=== PATIENT | male | born 1960 | race African-American/Black ===

== ENCOUNTER 2017-01-06 13:18 | Emergency (ER) | payer MEDICAID ==
[~2017-01-06] VITALS: Ht 167.6 cm; Wt 91.0 kg
[2017-01-06] MEDS ORDERED: IOHEXOL-300 100 ML BOTTLE ONE (13:52)
[2017-01-06] MEDS ORDERED: SODIUM CHLORIDE 0.9% 10ML VIAL ONE (13:52)
[2017-01-06] MEDS ORDERED: TETANUS, DIPHTHERIA, PERTUSSIS VAC/PF 0.5ML (>7YR OLD) IM ONE (14:15)
[2017-01-06] MEDS ORDERED: SODIUM CHLORIDE 0.9% 1,000 ML IV ONE (15:19)
[2017-01-06] MEDS ORDERED: INSULIN REGULAR (HUMULIN R) 300UNITS/3ML SUBCUT ONE (15:30)
[2017-01-06 15:31] LABS: BASOPHILS % 0.8 % (0.0-2.0); HEMATOCRIT. 35.3 % (42.0-52.0); HEMOGLOBIN. 12.3 g/dL (14.0-18.0); LYMPHOCYTES % 33.7 % (20.0-50.0); MEAN CORPUSCULAR HEMOGLOBIN 30.5 pg (28.0-32.0); MEAN CORPUSCULAR HGB CONC 34.9 g/dL (31.0-37.0); MEAN CORPUSCULAR VOLUME 87.3 fL (80.0-94.0); MEAN PLATELET VOLUME 8.5 fl (7.4-10.4); MONOCYTES % 13.8 % (2.0-8.0); NEUTROPHILS % 49.7 % (40.0-76.0); PLATELET 182 x1000/uL (130-400); RED BLOOD CELL COUNT 4.04 mill/uL (4.7-6.1); RED CELL DISTRIBUTION WIDTH 12.7 % (11.6-14.6); WHITE BLOOD COUNT 3.1 x1000/uL (4.5-11.0)
[2017-01-06 15:32] LABS: ALANINE AMINOTRANSFERASE 31 IU/L (13-61); ALBUMIN 3.3 g/dL (3.4-5.0); ANION GAP 11; CALCIUM 8.2 mg/dL (8.5-10.1); CARBON DIOXIDE 26 mEq/L (21-32); CHLORIDE 104 mEq/L (98-107); ETHANOL BLOOD < 10 mg/dL; INDEX HEMOLYSI 1 (1-3); INDEX ICTERIC 1 (1-4); INDEX LIPEMIC 1 (1-3); LIPASE 139 IU/L (73-393); PROTHROMBIN TIME 10.5 sec; UREA NITROGEN BLOOD 13 mg/dL (7-21); eGFR > 60 mL/min (>60)
[2017-01-06 16:21] LABS: CLARITY URINE CLEAR (CLEAR); COLOR URINE YELLOW (YELLOW); GLUCOSE URINE 3+ (NEGATIVE); KETONES URINE NEGATIVE (NEGATIVE); LEUKOCYTE ESTERASE URINE NEGATIVE (NEGATIVE); NITRITE URINE NEGATIVE (NEGATIVE); OCCULT BLOOD URINE NEGATIVE (NEGATIVE); PROTEIN URINE NEGATIVE (NEGATIVE); SPECIFIC GRAVITY URINE 1.035 (1.005-1.030); UROBILINOGEN URINE 0.2 E.U./dL (0.2-1.0)
[2017-01-06 16:28] LABS: BACTERIA URINE NONE SEEN; CALCIUM PHOSPHATE CRYSTALS UR NONE SEEN /lpf; RBC URINE 0-2 /hpf (0-2); SQUAMOUS EPITHELIAL CELL URINE NONE SEEN /lpf (RARE/1+); WAXY CASTS URINE NONE SEEN /lpf; WBC URINE NONE SEEN /hpf (0-2); YEAST URINE NONE SEEN
[2017-01-06 16:46] LABS: *AMPHETAMINES SCREEN URINE PRESUMTIVE POSITIVE (NEGATIVE); *BARBITURATES SCREEN URINE NEGATIVE (NEGATIVE); *BENZODIAZEPINES SCREEN URINE NEGATIVE (NEGATIVE); *COCAINE SCREEN URINE NEGATIVE (NEGATIVE); CANNABINOID URINE SCREEN NEGATIVE (NEGATIVE); ECSTASY MDMA SCREEN URINE NEGATIVE (NEGATIVE); METHADONE URINE SCREEN NEGATIVE (NEGATIVE); OPIATES URINE SCREEN NEGATIVE (NEGATIVE); PHENCYCLIDINE URINE SCREEN NEGATIVE (NEGATIVE)
[2017-01-06 18:40] VITALS: BP 129/83
== END 2017-01-06 19:00 | disposition home or self-care (01) ==
LOC: ER 14:24
DX: S31.110A Laceration without foreign body of abdominal wall, right upper quadrant without penetration into peritoneal cavity, initial encounter (principal); E11.9 Type 2 diabetes mellitus without complications; F17.210 Nicotine dependence, cigarettes, uncomplicated; X58.XXXA Exposure to other specified factors, initial encounter; Y93.89 Activity, other specified; Y92.9 Unspecified place or not applicable; Y99.8 Other external cause status
CPT/HCPCS: 36415; 71010; 74177; 76705; 80053; 80305; 81001; 82962; 83690; 85025; 85610; 90471; 90715; 96372; 99285; A4216; A4217; G0482; J1815; Q9967; Z7610; J7030

== ENCOUNTER 2017-09-26 11:45 | Emergency (ER) | payer MEDICAID ==
[~2017-09-26] VITALS: Ht 175.3 cm; Wt 75.0 kg
[2017-09-26 11:48] VITALS: BP 137/58
== END 2017-09-26 19:04 | disposition left against medical advice (07) ==
LOC: ER 11:52
DX: Z53.21 Procedure and treatment not carried out due to patient leaving prior to being seen by health care provider (principal); E11.9 Type 2 diabetes mellitus without complications

== ENCOUNTER 2018-12-25 10:45 | Emergency (ER) | payer MEDICAID ==
[~2018-12-25] VITALS: Ht 167.6 cm; Wt 91.0 kg
[2018-12-25] MEDS ORDERED: IBUPROFEN 800MG TABLET PO ONE (12:15)
[2018-12-25] MEDS ORDERED: DOCUSATE SODIUM SUGAR FREE 100MG/10ML UDC PO ONE (12:15)
[2018-12-25 12:16] VITALS: BP 126/80
[2018-12-25] MEDS ORDERED: DOCUSATE SODIUM 100MG CAPSULE PO SCH (12:30)
== END 2018-12-25 13:24 | disposition home or self-care (01) ==
LOC: ER 11:51
DX: H92.03 Otalgia, bilateral (principal); R51 Headache; F17.200 Nicotine dependence, unspecified, uncomplicated; E11.9 Type 2 diabetes mellitus without complications
CPT/HCPCS: 99283; A4217; Z7610

== ENCOUNTER 2019-09-21 13:09 | Emergency (ER) | payer SELFPAY ==
[~2019-09-21] VITALS: Ht 167.6 cm; Wt 94.0 kg
[2019-09-21 13:20] VITALS: BP 133/83
[2019-09-21] MEDS ORDERED: CARBAMIDE PEROXIDE 6.5% OTIC SOLN 15ML EACH EAR ONE (15:15)
== END 2019-09-21 15:44 | disposition left against medical advice (07) ==
LOC: ER 13:09
DX: Z53.21 Procedure and treatment not carried out due to patient leaving prior to being seen by health care provider (principal); E11.9 Type 2 diabetes mellitus without complications

== ENCOUNTER 2020-03-05 20:42 | Inpatient (IN) | payer MEDICAID ==
[~2020-03-05] VITALS: Ht 167.6 cm; Wt 71.7 kg
[2020-03-05] MEDS ORDERED: ACETAMINOPHEN 325MG TABLET PO ONE (21:30)
[2020-03-05 21:54] LABS: BASOPHILS % 0.2 % (0.0-2.0); EOSINOPHILS % 0.4 % (0.0-5.0); HEMATOCRIT. 36.4 % (42.0-52.0); HEMOGLOBIN. 12.4 g/dL (14.0-18.0); LYMPHOCYTES % 10.7 % (20.0-50.0); NEUTROPHILS % 78.7 % (40.0-76.0); PLATELET 309 x1000/uL (130-400); RED BLOOD CELL COUNT 4.13 mill/uL (4.7-6.1); RED CELL DISTRIBUTION WIDTH 12.6 % (11.6-14.6)
[2020-03-05 21:57] LABS: CHLORIDE 98 mEq/L (98-107)
[2020-03-05] MEDS ORDERED: AMPICILLIN SOD/SULBACTAM NA 3 G in SODIUM CHLORIDE 0.9% 100 ML IV SCH (22:30)
[2020-03-06] MEDS ORDERED: INSULIN REGULAR (HUMULIN R) 300UNITS/3ML SUBCUT ONE (00:15)
[2020-03-06] MEDS ORDERED: GUAIFENESIN 200MG/10ML SUGAR FREE UDC PO PRN (02:15)
[2020-03-06] MEDS ORDERED: IPRATROPIUM/ALBUTEROL 0.5-3(2.5)MG/3ML NEB NEB PRN (02:15)
[2020-03-06] MEDS ORDERED: DOCUSATE SODIUM 100MG CAPSULE PO PRN (02:15)
[2020-03-06] MEDS ORDERED: MORPHINE SULFATE 2 MG/ML CPJ (NOT FOR IM USE) IV PRN (02:15)
[2020-03-06] MEDS ORDERED: MAGNESIUM/ALUMINUM HYDROXIDE/SIMETHICONE 30ML UDC PO PRN (02:15)
[2020-03-06] MEDS ORDERED: ACETAMINOPHEN 325MG TABLET PO PRN (02:15)
[2020-03-06] MEDS ORDERED: HYDROCODONE/ACETAMINOPHEN 5/325MG TABLET PO PRN (02:15)
[2020-03-06] MEDS ORDERED: LORAZEPAM 2MG/ML CPJ IV PRN (02:15)
[2020-03-06] MEDS ORDERED: NA PHOS,M-B/NA PHOS,DI-BA ENEMA 118ML PR PRN (02:15)
[2020-03-06] MEDS ORDERED: DIPHENHYDRAMINE 50MG/ML VIAL IV PRN (02:15)
[2020-03-06] MEDS ORDERED: PIPERACILLIN/TAZ 3.375G PREMIX 50 ML IV SCH (02:15)
[2020-03-06] MEDS ORDERED: ONDANSETRON HCL 4MG/2ML INJ IV PRN (02:15)
[2020-03-06] MEDS ORDERED: ENOXAPARIN 40MG/0.4ML SYR SUBCUT NR (02:23)
[2020-03-06 02:45] LABS: CHLORIDE 100 mEq/L (98-107)
[2020-03-06] MEDS: VANCOMYCIN 1 G PREMIX 200 ML IV SCH ×2 (03:58→16:54)
[2020-03-06] MEDS: CLONIDINE 0.1MG TABLET PO PRN ×2 (04:15→21:36)
[2020-03-06] MEDS: PIPERACILLIN/TAZOBACTAM 3.375 G in DEXT 5% WATER 100 ML IV SCH ×2 (06:07→15:34)
[2020-03-06] MEDS ORDERED: DEXTROSE 50% WATER 50ML SYRINGE IV PRN (08:00)
[2020-03-06] MEDS: BLOOD SUGAR DIAGNOSTIC STRIP TEST SCH ×4 (08:38→20:59)
[2020-03-06] MEDS: INSULIN LISPRO 100 UNITS/ML SUBCUT SCH ×4 (08:46→20:59)
[2020-03-06] MEDS: ASPIRIN 81MG EC TABLET PO SCH (09:54)
[2020-03-07] VITALS: BP 134/80
[2020-03-07 00:24] VITALS: BP 134/80
[2020-03-07] MEDS: PIPERACILLIN/TAZOBACTAM 3.375 G in DEXT 5% WATER 100 ML IV SCH ×2 (01:28→09:35)
[2020-03-07 04:00] VITALS: BP 145/78
[2020-03-07] MEDS ORDERED: VANCOMYCIN 1 G PREMIX 200 ML IV SCH ×2 (04:00→11:00)
[2020-03-07 06:11] LABS: BASOPHILS % 0.3 % (0.0-2.0); EOSINOPHILS % 1.2 % (0.0-5.0); HEMATOCRIT. 36.2 % (42.0-52.0); HEMOGLOBIN. 12.4 g/dL (14.0-18.0); LYMPHOCYTES % 14.6 % (20.0-50.0); MEAN CORPUSCULAR HEMOGLOBIN 30.2 pg (28.0-32.0); MEAN CORPUSCULAR VOLUME 88.5 fL (80.0-94.0); MONOCYTES % 8.8 % (2.0-8.0); NEUTROPHILS % 75.1 % (40.0-76.0); PLATELET 319 x1000/uL (130-400); RED CELL DISTRIBUTION WIDTH 12.5 % (11.6-14.6)
[2020-03-07 06:16] LABS: CHLORIDE 101 mEq/L (98-107)
[2020-03-07] MEDS: BLOOD SUGAR DIAGNOSTIC STRIP TEST SCH ×2 (06:20→11:27)
[2020-03-07 06:23] LABS: LDL CHOLESTEROL 49 mg/dL (5-100)
[2020-03-07 06:24] LABS: HDL CHOLESTEROL 67 mg/dL (40-59)
[2020-03-07 08:00] VITALS: BP 134/76
[2020-03-07] MEDS: INSULIN LISPRO 100 UNITS/ML SUBCUT SCH ×2 (08:16→12:46)
[2020-03-07] MEDS: ASPIRIN 81MG EC TABLET PO SCH (08:54)
[2020-03-07] MEDS ORDERED: ENOXAPARIN 40MG/0.4ML SYR SUBCUT SCH (09:00)
[2020-03-07 12:00] VITALS: BP 121/71
[2020-03-07 13:01] VITALS: BP 121/70
== END 2020-03-07 14:25 | disposition home or self-care (01) | DRG 383 ==
LOC: ER 21:05 → 6EST 03-06 00:07 → ENRESERV 03-06 20:32
PROVIDERS: ADMIT Internal Medicine; ATTEND Internal Medicine
DX: L03.115 Cellulitis of right lower limb (principal); F17.210 Nicotine dependence, cigarettes, uncomplicated; E11.65 Type 2 diabetes mellitus with hyperglycemia; E87.1 Hypo-osmolality and hyponatremia; E44.1 Mild protein-calorie malnutrition; Z91.14 Patient's other noncompliance with medication regimen; Z91.19 Patient's noncompliance with other medical treatment and regimen; Z68.25 Body mass index [BMI] 25.0-25.9, adult; R65.10 Systemic inflammatory response syndrome (SIRS) of non-infectious origin without acute organ dysfunction
CPT/HCPCS: 36415; 73630; 80048; 80053; 80061; 80202; 82962; 83605; 85025; 87070; 93005; 93971; 99285; J0295; J1650; J1815; J2543; J3370; J7050; J7060

== ENCOUNTER 2020-07-27 13:19 | Inpatient (IN) | payer MEDICAID ==
[~2020-07-27] VITALS: Ht 167.6 cm; Wt 80.4 kg
[2020-07-27] MEDS ORDERED: MORPHINE SULFATE 4 MG/ML CPJ (NOT FOR IM USE) IV STA (13:51)
[2020-07-27] MEDS ORDERED: ONDANSETRON HCL 4MG/2ML INJ IV STA (13:51)
[2020-07-27] MEDS ORDERED: VANCOMYCIN 1 G PREMIX 200 ML IV SCH (14:00)
[2020-07-27] MEDS ORDERED: PIPERACILLIN/TAZ 3.375G PREMIX 50 ML IV ONE (14:00)
[2020-07-27] MEDS ORDERED: SODIUM CHLORIDE 0.9% 1,000 ML IV ONE ×3 (14:00→15:15)
[2020-07-27 14:29] LABS: BASOPHILS % 0.6 % (0.0-2.0); EOSINOPHILS % 0.7 % (0.0-5.0); HEMATOCRIT. 38.6 % (42.0-52.0); HEMOGLOBIN. 12.8 g/dL (14.0-18.0); LYMPHOCYTES % 9.6 % (20.0-50.0); MEAN CORPUSCULAR HEMOGLOBIN 29.8 pg (28.0-32.0); MEAN CORPUSCULAR VOLUME 89.6 fL (80.0-94.0); MEAN PLATELET VOLUME 8.4 fl (7.4-10.4); MONOCYTES % 6.8 % (2.0-8.0); NEUTROPHILS % 82.3 % (40.0-76.0); PLATELET 313 x1000/uL (130-400); RED BLOOD CELL COUNT 4.31 mill/uL (4.7-6.1); RED CELL DISTRIBUTION WIDTH 12.7 % (11.6-14.6)
[2020-07-27 14:36] LABS: CHLORIDE 92 mEq/L (98-107)
[2020-07-27 14:43] LABS: PROTHROMBIN TIME 10.1 sec (9.6-11.0)
[2020-07-27] MEDS ORDERED: INSULIN REGULAR (HUMULIN R) UD 100 UNITS/ML SYR SUBCUT ONE (15:15)
[2020-07-27] MEDS ORDERED: INSULIN REGULAR (HUMULIN R) 300UNITS/3ML VIAL SUBCUT NR (15:30)
[2020-07-27] MEDS ORDERED: HYDROCODONE/ACETAMINOPHEN 5/325MG TABLET PO PRN (17:15)
[2020-07-27] MEDS ORDERED: DEXTROSE 50% WATER 50ML SYRINGE IV PRN (17:15)
[2020-07-27] MEDS ORDERED: ACETAMINOPHEN 325MG TABLET PO PRN (17:15)
[2020-07-27] MEDS ORDERED: ONDANSETRON HCL 4MG/2ML INJ IV PRN (17:15)
[2020-07-27] MEDS ORDERED: CLONIDINE 0.1MG TABLET PO PRN (17:15)
[2020-07-27] MEDS ORDERED: ENOXAPARIN 40MG/0.4ML SYR SUBCUT SCH (17:30)
[2020-07-27] MEDS ORDERED: INSULIN GLARGINE UD 100 UNITS/ML SYR SUBCUT NR (17:30)
[2020-07-27] MEDS: INSULIN LISPRO 100 UNITS/ML SUBCUT SCH ×2 (19:18→21:00)
[2020-07-27] MEDS ORDERED: BLOOD SUGAR DIAGNOSTIC STRIP TEST SCH (21:00)
[2020-07-27] MEDS ORDERED: INSULIN GLARGINE UD 100 UNITS/ML SYR SUBCUT SCH (22:00)
[2020-07-28 04:00] VITALS: BP 131/73
[2020-07-28] MEDS ORDERED: VANCOMYCIN 1250MG in DEXTROSE 5% WATER 250ML IV SCH ×2 (04:00→09:00)
[2020-07-28 06:53] LABS: BASOPHILS % 0.3 % (0.0-2.0); EOSINOPHILS % 1.4 % (0.0-5.0); HEMATOCRIT. 33.3 % (42.0-52.0); HEMOGLOBIN. 11.6 g/dL (14.0-18.0); LYMPHOCYTES % 12.4 % (20.0-50.0); MEAN CORPUSCULAR HEMOGLOBIN 30.4 pg (28.0-32.0); MEAN CORPUSCULAR VOLUME 87.3 fL (80.0-94.0); MEAN PLATELET VOLUME 8.1 fl (7.4-10.4); MONOCYTES % 8.9 % (2.0-8.0); PLATELET 313 x1000/uL (130-400); RED BLOOD CELL COUNT 3.81 mill/uL (4.7-6.1); RED CELL DISTRIBUTION WIDTH 12.9 % (11.6-14.6)
[2020-07-28 07:18] LABS: CHLORIDE 102 mEq/L (98-107)
[2020-07-28] MEDS: INSULIN LISPRO 100 UNITS/ML SUBCUT SCH (07:40)
[2020-07-28 08:00] VITALS: BP 135/81
[2020-07-28 08:21] VITALS: BP 131/73
[2020-07-28 12:00] VITALS: BP 126/67
[2020-07-28 16:00] VITALS: BP 130/74
[2020-07-28 18:48] VITALS: BP 130/74
== END 2020-07-28 19:00 | disposition home or self-care (01) | DRG 720 ==
LOC: ER 13:19 → 8WST 16:15 → ENRESERV 21:39
PROVIDERS: ADMIT Internal Medicine; ATTEND Internal Medicine
DX: A41.9 Sepsis, unspecified organism (principal); E11.65 Type 2 diabetes mellitus with hyperglycemia; L03.116 Cellulitis of left lower limb; E87.8 Other disorders of electrolyte and fluid balance, not elsewhere classified; E87.1 Hypo-osmolality and hyponatremia; E44.0 Moderate protein-calorie malnutrition; F17.210 Nicotine dependence, cigarettes, uncomplicated; Z68.28 Body mass index [BMI] 28.0-28.9, adult; Z71.6 Tobacco abuse counseling
CPT/HCPCS: 36415; 71045; 80048; 80053; 82962; 83036; 84484; 85025; 93005; 93970; 96365; 99285; J1650; J1815; J2270; J2405; J2543; J3370; J7030; J7060

== ENCOUNTER 2021-04-24 20:54 | Emergency (ER) | payer MEDICAID ==
[~2021-04-24] VITALS: Ht 175.3 cm; Wt 78.0 kg
[2021-04-24] MEDS ORDERED: SODIUM CHLORIDE 0.9% 1,000 ML IV ONE (23:15)
[2021-04-25 00:07] LABS: HEMOGLOBIN. 13.7 g/dL (14.0-18.0); MEAN CORPUSCULAR HEMOGLOBIN 30.4 pg (28.0-32.0); MEAN CORPUSCULAR VOLUME 86.7 fL (80.0-94.0); MEAN PLATELET VOLUME 8.8 fl (7.4-10.4); PLATELET 232 x1000/uL (130-400); RED CELL DISTRIBUTION WIDTH 12.5 % (11.6-14.6)
[2021-04-25 00:09] LABS: CHLORIDE 97 mEq/L (98-107)
[2021-04-25 00:23] LABS: BETA HYDROXYBUTYRATE 0.2 mMol/L (0.0-0.3)
[2021-04-25 03:00] VITALS: BP 134/78
[2021-04-25] MEDS ORDERED: DOXY100T2 MT (03:58)
[2021-04-25 04:42] LABS: PLATELET ESTIMATE NORMAL
== END 2021-04-25 05:01 | disposition home or self-care (01) ==
LOC: ER 20:54
DX: J18.9 Pneumonia, unspecified organism (principal); E11.9 Type 2 diabetes mellitus without complications; F19.10 Other psychoactive substance abuse, uncomplicated; E86.0 Dehydration; Z79.899 Other long term (current) drug therapy; Z91.14 Patient's other noncompliance with medication regimen
CPT/HCPCS: 36415; 71045; 80053; 82010; 82962; 85025; 93005; 96360; 96361; 99285; J7030

== ENCOUNTER 2021-09-24 09:40 | Emergency (ER) | payer OTHER ==
[~2021-09-24] VITALS: Ht 175.3 cm; Wt 87.0 kg
[~2021-09-24 09:40] MED LIST: DOXY100T2 MT
[2021-09-24] MEDS ORDERED: HYDROCODONE/ACETAMINOPHEN 5/325MG TABLET PO STA (10:03)
[2021-09-24] MEDS ORDERED: CEFTRIAXONE 1 G PREMIX 50 ML IV ONE (10:15)
[2021-09-24] MEDS ORDERED: VANCOMYCIN 1G PREMIX 200 ML IV ONE (10:15)
[2021-09-24 10:33] LABS: BASOPHILS % 0.2 % (0.0-2.0); EOSINOPHILS % 0.1 % (0.0-5.0); HEMATOCRIT. 30.6 % (42.0-52.0); LYMPHOCYTES % 8.2 % (20.0-50.0); MEAN CORPUSCULAR HEMOGLOBIN 28.6 pg (28.0-32.0); MEAN CORPUSCULAR VOLUME 87.2 fL (80.0-94.0); MONOCYTES % 7.6 % (2.0-8.0); NEUTROPHILS % 83.9 % (40.0-76.0); PLATELET 263 x1000/uL (130-400); RED BLOOD CELL COUNT 3.51 mill/uL (4.7-6.1)
[2021-09-24 10:42] LABS: CHLORIDE 91 mEq/L (98-107)
[2021-09-24 10:56] LABS: CLARITY URINE CLEAR (CLEAR); COLOR URINE YELLOW (YELLOW); KETONES URINE TRACE (NEGATIVE); LEUKOCYTE ESTERASE URINE NEGATIVE (NEGATIVE); NITRITE URINE NEGATIVE (NEGATIVE); OCCULT BLOOD URINE NEGATIVE (NEGATIVE); PROTEIN URINE NEGATIVE (NEGATIVE); SPECIFIC GRAVITY URINE 1.029 (1.005-1.030); UROBILINOGEN URINE 0.2 E.U./dL (0.2-1.0)
[2021-09-24 11:02] LABS: D-DIMER 0.91 mg/L FEU (<0.50); PROTHROMBIN TIME 10.4 sec (9.6-11.0)
[2021-09-24] MEDS ORDERED: INSULIN REGULAR (HUMULIN R) 300UNITS/3ML VIAL SUBCUT SCH (11:15)
[2021-09-24] MEDS ORDERED: SODIUM CHLORIDE 0.9% 1,000 ML IV SCH (11:15)
[2021-09-24 13:18] VITALS: BP 111/70
== END 2021-09-24 13:20 | disposition short-term general hospital (02) ==
LOC: EDBEDREQ 10:25 → ER 11:11 → CANBEDREQ 22:07
DX: L03.116 Cellulitis of left lower limb (principal); E11.65 Type 2 diabetes mellitus with hyperglycemia; D64.9 Anemia, unspecified; F17.290 Nicotine dependence, other tobacco product, uncomplicated; E11.9 Type 2 diabetes mellitus without complications; I49.9 Cardiac arrhythmia, unspecified; Z98.890 Other specified postprocedural states; Z20.822 Contact with and (suspected) exposure to COVID-19
CPT/HCPCS: 36415; 71045; 73630; 80053; 81003; 83605; 83880; 84145; 84484; 85025; 85379; 85610; 85651; 87040; 87077; 87086; 87186; 87426; 93005; 93971; 96365; 96366; 96368; 96372; 99291; 99406; J0696; J1815; J3370